=== PATIENT | male | born 1960 | race Hispanic/Latino ===

== ENCOUNTER → 2025-06-05 | Outpatient (CLI) | payer BC ==
[~2025-06-05] MED LIST: IOHEXOL-350 75 ML VIAL IV ONE
--- NOTE | 2025-06-06 12:12 | HMCIMG ---
EXAM: CT Abdomen with and without IV contrast CLINICAL HISTORY: Other fecal abnormalities, PANCREATIC PROTOCOL TECHNIQUE: Axial computed tomography images of the abdomen with and without intravenous contrast. CONTRAST: with and without intravenous contrast. COMPARISON: None provided. FINDINGS: LUNG BASES: The lung bases appear clear. No pleural effusions are seen. LIVER: The liver is enlarged, and the right lobe of the liver measures 16.9 cm. GALLBLADDER AND BILE DUCTS: The gallbladder appears within normal limits. No radioopaque gallstones are seen. No biliary ductal dilatation is evident. PANCREAS: The pancreas appears diffusely atrophic in its entire length. SPLEEN: Unremarkable. ADRENAL GLANDS: Unremarkable. KIDNEYS AND VISUALIZED URETERS: Heterogeneous enhancement in the right kidney, consistent with right-sided pyelonephritis. There is no hydronephrosis or hydroureter. No urinary calculi are seen. STOMACH AND VISUALIZED BOWEL: The large bowel loops appear distended with faecal matter. Unremarkable appearance of the stomach and bowel. No evidence of bowel obstruction. No evidence suggesting enteritis or colitis. PERITONEUM: No free fluid. No free air. LYMPH NODES: No lymphadenopathy is evident. VASCULATURE: Mild atherosclerotic changes in the form of eccentric vessel wall calcification in the abdominal aorta and its major branches. No evidence of abdominal aortic aneurysm. BONES: Degenerative changes in the visualized spine in the form of marginal osteophytes and degenerative discs at multiple lumbar levels. No aggressive appearing osseous lesion. No acute osseous pathology evident. IMPRESSION: 1. Atrophic pancreas. No focal lesions. 2. Right sided pyelonephritis. 3. Hepatomegaly with right lobe measuring 16.9 cm. /[place]
== END | disposition home or self-care (01) ==
LOC: RAH 08:32
PROVIDERS: ATTEND Internal Medicine Gastroenterology
DX: N12 Tubulo-interstitial nephritis, not specified as acute or chronic (principal); R16.0 Hepatomegaly, not elsewhere classified; R19.5 Other fecal abnormalities; R63.4 Abnormal weight loss; I70.0 Atherosclerosis of aorta; M47.816 Spondylosis without myelopathy or radiculopathy, lumbar region; M25.78 Osteophyte, vertebrae
CPT/HCPCS: 74170; Q9967